=== PATIENT | male | born 1995 | race Caucasian/White ===

== ENCOUNTER 2022-04-05 18:57 | Emergency (ER) | payer MEDICAID ==
[~2022-04-05] VITALS: Ht 170.2 cm; Wt 4.0 kg
[2022-04-05 19:57] VITALS: BP 117/69
[2022-04-05] MEDS ORDERED: BACITRACIN ZINC OINT UDPKT TOP ONE (23:15)
[2022-04-05] MEDS ORDERED: IBUP-2029 MT (23:19)
[2022-04-05] MEDS ORDERED: SULF1TAB48 MT (23:19)
[2022-04-05] MEDS ORDERED: CEPH500T MT (23:19)
[2022-04-05] MEDS ORDERED: MUPI22OI2 TP (23:19)
== END 2022-04-05 23:32 | disposition home or self-care (01) ==
LOC: ER 18:57
DX: L03.115 Cellulitis of right lower limb (principal)
CPT/HCPCS: 99283